=== PATIENT | female | born 1975 ===

== ENCOUNTER 2024-06-01 13:28 | Outpatient (CLI) | payer BC, SELFPAY | END 2024-06-01 13:29 | disposition home or self-care (01) | LOC: ANHAUDASC 13:51 → ANHAUDIO 13:52 | PROVIDERS: PCP Family Medicine; Visit Provider Otolaryngology | DX: H93.19 Tinnitus, unspecified ear (principal); H90.3 Sensorineural hearing loss, bilateral | CPT/HCPCS: 92557; 92567 ==